=== PATIENT | female | born 1940 | race Caucasian/White ===

== ENCOUNTER → 2018-10-28 | Outpatient (CLI) | payer MEDICARE, OTHER ==
--- NOTE | 2018-10-29 10:13 | CT ---
EXAM DESCRIPTION: Abdomen/Pelvis w/wo Contrast: Computed Tomography. CLINICAL HISTORY: EPIGASTRIC PAIN. Liver mass seen on outside imaging study. COMPARISON: None. TECHNIQUE: Spiral-axial scans at 5.0 mm intervals through the abdomen and pelvis before and during arterial nonionic IV contrast. No oral contrast. 2.5 mm spiral axial reconstructions during the arterial phase. Coronal and sagittal 2.0 mm reconstructions after 10 minute delay. Also 10 minute Delayed helical-axial scans, 5 mm intervals liver through the pubic symphysis. No adverse reactions. Total Exam DLP 1620.0 mGy - cm. This exam was performed according to our departmental CT dose-optimization program which includes automated exposure control, adjustment of the mA and/or kV according to patient size and/or use of iterative reconstruction technique; to reduce radiation dose to as low as reasonably achievable (ALARA). FINDINGS: Lung bases and pleura: Pleural parenchymal scarring in the bilateral lung bases. Atherosclerotic calcifications aorta and minimal calcifications in the coronary arteries. Liver, Stomach, Spleen, Adrenal Glands: 3 low-density masses visualized in the medial right lobe of the liver, inferior right lobe of the liver, and medial superior right hepatic lobe. All the lesions are subcapsular. The most superior lesion measures 5.2 x 3.5 x 4.8 cm with Hounsfield density ranging from -6 - +10. More inferior mass in the mid right lobe medially in subcapsular location measures 6.1 x 6.4 x 4.7 cm and is from the more superior mass by a thin septation. Hounsfield density ranges from +5.4 -12.1. The smallest mass in the inferior right lobe tip measures approximately 1.5 cm greatest diameter and density ranges from +14 - +17. Most likely cysts with no abnormal enhancement. Remainder of the liver is unremarkable with no regions of hyper enhancement or abnormal enhancement. 1 cm subcapsular lesion in the anterior spleen with variable Hounsfield density +14 +21. Small gastric hiatal hernia. Adrenal glands negative. Pancreas, Gallbladder, Ducts: Gallbladder visualized. Common bile duct and pancreas are negative. Kidneys and Ureters: Minimal radiodensities bilaterally but no measurable stones. No hydronephrosis or hydroureter. No perinephric edema. 1 cm cyst mid anterior right kidney. Mesentery: No free air or free fluid. No stranding or fascial thickening. Aorta: Minimal atherosclerotic calcification distally. Normal caliber. Small Bowel: Unremarkable. Terminal Ileum/Cecum: Minimal distention by fecal matter. TI normal. No appendix. Colon: Proximal and transverse colon distended by fecal matter. Minimal edema in the descending colon wall versus lack of distention with questionable haziness of the serosal fat margin. Diverticula in the sigmoid but no complications. Pelvic Organs: 4.3 x 3.7 cm solid mass on the right lateral aspect of the uterus in the right adnexa with no definite fat plane between the mass in the uterus. Density of the mass is +87 and density of the uterus is +77. This mass is most likely a pedunculated fibroid. 1 cm cyst on the anterior aspect of this mass with Hounsfield density +11. Minimal fluid on the lateral aspect of the mass. Separate right ovarian tissue not visualized. Small left ovary most likely abutting the left horn of the uterus. Calcifications abutting the cervix. No radiodense stones in the urinary bladder. Spine and Bony Pelvis: Spondylosis L5-S1 and disc space narrowing. Spondylosis lower thoracic spine. Minimal arthrosis hips pubic symphysis and SI joints. Abdominal Wall/Back Soft Tissues: Soft tissue calcifications adipose tissue of the buttocks more on the left than right . Most likely from prior injections. IMPRESSION: 1. 2 large subcapsular cysts in the liver with no solid component, no abnormal enhancement. Also a smaller subcapsular cyst at the inferior right lobe tip. Anterior splenic cyst. 2. Minimal and lack of haustral markings versus lack of distention in the descending colon with possible serosal reaction. Diverticulosis with no evidence of inflammation or other complications. 3. 4.3 cm mass to the right of the uterine body, most likely a pedunculated fibroid. Minimal fluid in the right adnexa. Possible cyst in small right ovary. Left ovary unremarkable. Consider pelvic ultrasound for delineating this mass. 4. Minimal nephrolithiasis with no obstruction. Right renal cyst. Electronically signed by: Gerardo Cade MD 10/29/2018 10:10 AM [employer]
== END ==
LOC: CT 09:22
PROVIDERS: ATTEND General Practice
DX: K57.90 Diverticulosis of intestine, part unspecified, without perforation or abscess without bleeding (principal); N20.0 Calculus of kidney; K76.89 Other specified diseases of liver; R93.2 Abnormal findings on diagnostic imaging of liver and biliary tract; R19.03 Right lower quadrant abdominal swelling, mass and lump; D73.4 Cyst of spleen; N28.1 Cyst of kidney, acquired